=== PATIENT | female | born 1945 | race Caucasian/White ===

== ENCOUNTER 2019-02-22 16:35 | Emergency (ER) | payer BC, MEDICARE ==
[2019-02-22 16:48] VITALS: BP 186/102; PULSE 86
[2019-02-22] MEDS ORDERED: Prochlorperazine 10 MG/2 ML SDV IVPUSH ONE (16:58)
[2019-02-22] MEDS ORDERED: diphenhydrAMINE 50 MG/ML SDV IVPUSH ONE (16:59)
[2019-02-22] MEDS ORDERED: Ketorolac 30 MG/ML SDV IVPUSH ONE (16:59)
[2019-02-22] MEDS ORDERED: Lactated Ringers 1,000 ML IV SCH (17:00)
--- NOTE | 2019-02-22 17:03 | EDM.PDOC ---
ED HPI GENERAL MEDICAL PROBLEM - General Chief Complaint: Headache Stated Complaint: HEADACHE/ FEELING SICK Time Seen by Provider: 02/22/19 16:50 Source of Information: Reports: Patient, Old Records History Limitations: Reports: No Limitations - History of Present Illness INITIAL COMMENTS - FREE TEXT/NARRATIVE: 73 yo female presents with a HOLLAND for the past few days. Has a hx of migraine. Has felt not well for the past 2 weeks, but has not gone to her provider. Was to a clinic near her daughter's yesterday while visiting and got a Toradol injection and some Tizanidine with partial, temporary benefit. No fever or vomiting. Has mild photophobia. No chest pain, SOB, abdominal pain, change in bowel or bladder fxn. Feels like she has been more anxious/stressed lately. BP at home in the 140-150's recently, 160 systolic today at home before coming in. Does not normally have HTN. Onset: Gradual Onset Date: 02/08/19 Duration: Week(s): (2), Getting Worse Location: Reports: Head, Generalized Quality: Reports: Ache Severity: Moderate Improves with: Reports: Medication Worsens with: Reports: Other (? stress) Context: Reports: Other (See HPI) Associated Symptoms: Reports: Headaches, Nausea/Vomiting (mild nausea only). Denies: Chest Pain, Cough, Diaphoresis, Fever/Chills, Loss of Appetite, Rash, Seizure, Shortness of Breath, Syncope Treatments [employer]: Reports: Other (see below) (none today) - Related Data Allergies Allergy/AdvReac Type Severity Reaction Status Date / Time codeine Allergy Cannot Verified 02/22/19 16:53 Remember Tetanus Vaccines and Toxoid Allergy Cannot Verified 02/22/19 16:53 [Tetanus Vaccines & Toxoid] Remember Home Meds: Home Meds Amitriptyline [Elavil] 50 mg PO BEDTIME 05/06/15 [History] Calcium Carbonate/Vitamin D3 [Calcium 600 + Vit D 400 Tablet] 1 tab PO DAILY [History] Cholecalciferol (Vitamin D3) [Vitamin D3] 1,000 unit PO DAILY 05/06/15 [History] Krill/Om-3/DHA/EPA/Phospho/Ast [Preston-3 Krill Oil 300 mg Sfgl] 1 cap PO DAILY [History] Omeprazole [Prilosec] 40 mg PO DAILY 05/06/15 [History] SUMAtriptan [Imitrex] 50 mg PO DAILY PRN 05/06/15 [History] Zoledronic Acid in Water [Reclast] 5 mg IV ONETIME 05/06/15 [History] Zolpidem [Ambien] 5 mg PO BEDTIME PRN 05/06/15 [History] Past Medical History HEENT History: Reports: Cataract, Impaired Vision, Other (See Below) Other HEENT History: Hx of Barretts esophagus Gastrointestinal History: Reports: GERD, Hemorrhoids [employer]ENT History: Reports: , Spontaneous Musculoskeletal History: Reports: Osteoarthritis Neurological History: Reports: Migraines Endocrine/Metabolic History: Reports: Osteoporosis - Infectious Disease History Infectious Disease History: Reports: Chicken Pox, Measles, Mumps - Past Surgical History Head Surgeries/Procedures: Reports: None HEENT Surgical History: Reports: LASIK, Tonsillectomy, Other (See Below) GI Surgical History: Reports: Cholecystectomy, Colonoscopy, EGD Endocrine Surgical History: Reports: None Neurological Surgical History: Reports: None Musculoskeletal Surgical History: Reports: None Dermatological Surgical History: Reports: None Social & Family History - Caffeine Use Caffeine Use: Reports: None ED ROS GENERAL - Review of Systems Review Of Systems: See Below Constitutional: Reports: No Symptoms. Denies: Fever, Diaphoresis HEENT: Reports: Other (mild photophobia) Respiratory: Reports: No Symptoms Cardiovascular: Reports: No Symptoms Endocrine: Reports: No Symptoms GI/Abdominal: Reports: Nausea. Denies: Abdominal Pain, Black Stool, Constipation, Diarrhea, Distension, Flatus, Hematemesis, Hematochezia, Vomiting : Reports: No Symptoms Musculoskeletal: Reports: No Symptoms Skin: Reports: No Symptoms Neurological: Reports: Headache. Denies: Confusion, Dizziness, Numbness, Paresthesia, Seizure, Tingling, Tremors, Trouble Speaking, Difficulty Walking, Weakness, Change in Speech, Gait Disturbance Psychiatric: Reports: Anxiety - Physical Exam Exam: See Below Exam Limited By: No Limitations General Appearance: Alert, WD/WN, No Apparent Distress Eye Exam: Bilateral Eye: Normal Inspection Ears: Normal External Exam, Normal Canal, Hearing Grossly Normal, Normal TMs Nose: Normal Inspection, No Blood Throat/Mouth: Normal Inspection, Normal Lips, Normal Oropharynx, Normal Voice, No Airway Compromise Head Exam: Atraumatic, Normocephalic Neck: Normal Inspection, Supple, Non-Tender, Full Range of Motion Respiratory/Chest: No Respiratory Distress, Lungs Clear, Normal Breath Sounds, No Accessory Muscle Use Cardiovascular: Regular Rate, Rhythm, No Edema GI/Abdominal: Normal Bowel Sounds, Soft, Non-Tender, No Distention Neuro Exam (Abbreviated): Alert, Oriented, CN II-XII Intact, Normal Cognition, No Motor/Sensory Deficits Back Exam: Normal Inspection. No: CVA Tenderness (R), CVA Tenderness (L) Extremities: Normal Inspection, Normal Range of Motion, Non-Tender, No Pedal Edema Psychiatric: Normal Affect, Anxious Skin Exam: Warm, Dry, Intact, Normal Color, No Rash Course - Vital Signs Text/Narrative:: Is feeling better after our treatment. Last Recorded V/S: Last Vital Signs Temp 36.9 C 02/22/19 16:56 Pulse 86 02/22/19 16:56 Resp 16 02/22/19 16:56 BP 186/102 H 02/22/19 16:56 Pulse Ox 97 02/22/19 16:56 - Orders/Labs/Meds Orders: Active Orders 24 hr Category Date Time Status Lactated Ringers [Ringers, Lactated] 1,000 ml Med 02/22/19 17:00 Active IV ASDIRECTED Medication Orders Lactated Ringer's (Ringers, Lactated) 1,000 mls @ 500 mls/hr IV ASDIRECTED VAMSHI Last Admin: 02/22/19 17:15 Dose: 500 mls/hr Labs: Laboratory Tests 02/22/19 Range/Units 16:59 Sodium 135 L (140-148) mmol/L Potassium 3.6 (3.6-5.2) mmol/L Chloride 98 L (100-108) mmol/L Carbon Dioxide 28 (21-32) mmol/L Anion Gap 12.6 (5.0-14.0) mmol/L BUN 11 (7-18) mg/dL Creatinine 0.8 (0.6-1.0) mg/dL Est Cr Clr Drug Dosing 56.36 mL/min Estimated GFR (MDRD) > 60 (>60) Glucose 97 (74-106) mg/dL Calcium 9.2 (8.5-10.1) mg/dL Meds: Medications Generic Name Dose Route Start Last Admin Trade Name Freq PRN Reason Stop Dose Admin Lactated Ringer's 1,000 mls @ 500 mls/hr 02/22/19 17:00 02/22/19 17:15 Ringers, Lactated IV 500 mls/hr ASDIRECTED VAMSHI Administration Discontinued Medications Generic Name Dose Route Start Last Admin Trade Name Abdias PRN Reason Stop Dose Admin Diphenhydramine HCl 25 mg 02/22/19 16:59 02/22/19 17:16 Benadryl IVPUSH 02/22/19 17:00 25 mg ONETIME ONE Administration Ketorolac Tromethamine 15 mg 02/22/19 16:59 02/22/19 17:17 Toradol IVPUSH 02/22/19 17:00 15 mg ONETIME ONE Administration Prochlorperazine Edisylate 10 mg 02/22/19 16:58 02/22/19 17:19 Compazine IVPUSH 02/22/19 16:59 10 mg ONETIME ONE Administration Departure - Departure Time of Disposition: 18:00 Disposition: Home, Self-Care 01 Condition: Fair Clinical Impression: Headache Qualifiers: Headache type: unspecified Headache chronicity pattern: acute headache Intractability: not intractable Qualified Code(s): R51 - Headache HTN (hypertension) Qualifiers: Hypertension type: unspecified Qualified Code(s): I10 - Essential (primary) hypertension - Discharge Information *PRESCRIPTION DRUG MONITORING PROGRAM REVIEWED*: No *COPY OF PRESCRIPTION DRUG MONITORING REPORT IN PATIENT KAREN: No Instructions: Hypertension, Recurrent Migraine Headache, [id number] Referrals: Colin Arevalo MD [Primary Care Provider] - Forms: ED Department Discharge Additional Instructions: No driving this evening. Eat foods rich in potassium and low in sodium to help your BP. F/U with Dr. Burns later this week regarding your BP. Return as needed. Continue any usual meds as before. Acetaminophen may safely be used as needed for pain/headache symptoms. - My Orders Last 24 Hours: My Active Orders 02/22/19 17:00 Lactated Ringers [Ringers, Lactated] 1,000 ml IV ASDIRECTED - Assessment/Plan Last 24 Hours: My Active Orders 02/22/19 17:00 Lactated Ringers [Ringers, Lactated] 1,000 ml IV ASDIRECTED
== END 2019-02-22 18:02 | disposition home or self-care (01) ==
LOC: JP.ED 16:35
DX: I10 Essential (primary) hypertension (principal); K21.9 Gastro-esophageal reflux disease without esophagitis; Z88.5 Allergy status to narcotic agent; Z88.7 Allergy status to serum and vaccine; Z79.899 Other long term (current) drug therapy
CPT/HCPCS: 36415; 80048; 96361; 96374; 96375; 99283; J0780; J1200; J1885; J7120; 99284

== ENCOUNTER 2024-03-18 09:22 | Day surgery (SDC) | payer MEDICARE ==
[2024-03-18 09:45] VITALS: BP 151/78; PULSE 70
[2024-03-18] MEDS ORDERED: Lactated Ringers 1,000 ML IV SCH (10:15)
== END 2024-03-18 10:24 | disposition home or self-care (01) ==
LOC: JP.SDS 09:22
PROVIDERS: ATTEND Surgery
DX: K22.70 Barrett's esophagus without dysplasia (principal); Z53.8 Procedure and treatment not carried out for other reasons